=== PATIENT | female | born 1985 | race Two or more races ===

== ENCOUNTER 2019-05-20 08:28 | Day surgery (SDC) | payer OTHER | END 2019-05-20 17:05 | disposition home or self-care (01) | LOC: CIR.AMB 08:28 | DX: T83.32XA Displacement of intrauterine contraceptive device, initial encounter (principal); Z30.432 Encounter for removal of intrauterine contraceptive device ==

== ENCOUNTER 2025-08-07 12:05 | Outpatient (CLI) | payer OTHER | END 2025-08-07 13:06 | disposition home or self-care (01) | LOC: NST 12:05 | PROVIDERS: ATTEND Obstetrics & Gynecology | DX: Z34.83 Encounter for supervision of other normal pregnancy, third trimester (principal) ==

== ENCOUNTER 2025-08-14 12:24 | Outpatient (CLI) | payer OTHER | END 2025-08-14 13:15 | disposition home or self-care (01) | LOC: NST 12:24 | PROVIDERS: ATTEND Obstetrics & Gynecology Gynecology | DX: Z34.83 Encounter for supervision of other normal pregnancy, third trimester (principal) ==

== ENCOUNTER 2025-08-17 14:00 | Inpatient (IN) | payer OTHER ==
[~2025-08-17] VITALS: Ht 167.6 cm; Wt 83.9 kg
[2025-08-29] VITALS (8 sets, daily range): BP systolic 114–139; BP diastolic 59–84
[2025-08-29] MEDS ORDERED: PRENATA CHEWAB1 EACH PO (07:26)
[2025-08-29] MEDS ORDERED: RINGERS SOLUTION,LACTATED 1,000 ML IV SCH (07:45)
[2025-08-29 08:04] LABS: BASO % 0.3 % (0.1-1.2); EOS # 0.07 (0.04-0.54); EOS % 0.8 % (0.7-7.0); LYMPH # 1.03 (1.18-3.74); LYMPH % 11.7 % (19.3-53.1); MEAN PLATELET VOLUME 10.90 fl (9.4-12.4); MONO # 0.52 (0.24-0.82); MONO % 5.9 % (4.7-12.5); NEUT # 7.03 (1.56-6.13); NEUT % 79.8 % (34.0-71.1); RED CELL DISTRIBUTION WIDTH 11.9 % (11.6-14.4)
[2025-08-29] MEDS ORDERED: OXYTOCIN 500 ML IV ONE (08:30)
[2025-08-29 08:37] LABS: INR < 0.93
[2025-08-29 08:49] LABS: ALT/SGPT 47.0 U/L (12-78); AST/SGOT 28.0 U/L (15-37); BILIRUBIN TOTAL 0.28 mg/dL (0.3-1.2); BUN CREA RATIO 25.0 (7.0-25.0); CREATININE SERUM 0.56 mg/dL (0.55-1.02); GFR 121.81; GLOBULINA 3.5 G/DL (2.4-3.5); GLUCOSE FASTING 89.0 mg/dL (65-100); OSMOLALITY SERUM 281.0 MOSM/KG (275-295)
[2025-08-29] MEDS ORDERED: LIDOCAINE HCL 1% 10ML VIAL ONE (15:47)
[2025-08-29] MEDS ORDERED: ERYTHROMYCIN BASE OPHT 1GM EACH TUBE OP ONE (15:47)
[2025-08-29] MEDS ORDERED: OXYTOCIN 20 UNITS/1000ML RL PIGGYBAG IV ONE (15:47)
[2025-08-29] MEDS ORDERED: CHLORHEXIDINE GLUCONATE 120 ML BOTTLE TOP ONE (15:47)
[2025-08-29] MEDS ORDERED: CHLORHEXIDINE GLUCONATE 120 ML BOTTLE TP SCH (16:45)
[2025-08-29] MEDS ORDERED: OXYTOCIN 1,000 ML IV ONE (16:45)
[2025-08-29] MEDS ORDERED: DOCUSATE SODIUM 100MG CAP PO SCH (17:00)
[2025-08-30] VITALS: BP 107/62
[2025-08-30 06:49] LABS: BASO % 0.3 % (0.1-1.2); EOS # 0.04 (0.04-0.54); EOS % 0.4 % (0.7-7.0); LYMPH # 1.01 (1.18-3.74); LYMPH % 9.4 % (19.3-53.1); MEAN PLATELET VOLUME 10.80 fl (9.4-12.4); MONO # 0.89 (0.24-0.82); MONO % 8.3 % (4.7-12.5); NEUT # 8.71 (1.56-6.13); NEUT % 80.8 % (34.0-71.1); RED CELL DISTRIBUTION WIDTH 12.1 % (11.6-14.4)
[2025-08-30 08:17] VITALS: BP 108/64
[2025-08-30] MEDS ORDERED: PNV,CALCIUM 72/IRON/FOLIC ACID 1 TAB TABLET PO SCH (09:00)
[2025-08-31 02:19] VITALS: BP 115/71
[2025-08-31 09:05] VITALS: BP 106/69
== END 2025-08-31 13:06 | disposition home or self-care (01) | DRG 807 ==
LOC: OB/GYN 08-25 14:00 → LDR 08-29 07:11 → OB/GYN 08-29 19:55
PROVIDERS: Obstetrics & Gynecology Gynecology; ADMIT Obstetrics & Gynecology; ATTEND Obstetrics & Gynecology
PROC: 10E0XZZ Delivery of Products of Conception, External Approach (ICD-10-PCS; principal; 2025-08-29)
PROC: 0UQMXZZ Repair Vulva, External Approach (ICD-10-PCS; 2025-08-29)
PROC: 4A1HXCZ Monitoring of Products of Conception, Cardiac Rate, External Approach (ICD-10-PCS; 2025-08-29)
DX: O71.82 Other specified trauma to perineum and vulva (principal); Z37.0 Single live birth; Z3A.40 40 weeks gestation of pregnancy

== ENCOUNTER 2025-08-21 08:21 | Outpatient (CLI) | payer OTHER | END 2025-08-21 13:45 | disposition home or self-care (01) | LOC: NST 08:21 | PROVIDERS: ATTEND Obstetrics & Gynecology Gynecology | DX: Z34.83 Encounter for supervision of other normal pregnancy, third trimester (principal) ==